=== PATIENT | female | born 1955 | race Caucasian/White ===

== ENCOUNTER 2024-02-07 14:30 | Emergency (ER) | payer OTHER, BC ==
--- OUTSIDE RECORDS SUMMARY | 2024-02-07 14:33 | XMS REPORT | Clinical Summary ---
Author Name Unknown Organization [facility] Address [address] [place] [address] Care Team Providers Care Roughing Mill Operator Name Role Phone Sandor Garcia MD Unavailable [email or web address] Claudia Barnes MD Primary Care Prov ider Shana Terrell MD Unavailable Chris Manuel MD Unavailable [phone] Karley Bach Unavailable Rachael Borjas MD Unavailable Allergies No known active allergies Medications bisoprolol-hyd roCHLOROthiazi de (ZIAC) 2.5 mg-6.25 mg per tablet TAKE 1 TABLET BY MOUTH EVERY DAY 0 09/13/19 19 Active levothyroxine (SYNTHROID, LEVOTHROID) 25 mcg tablet TAKE 1 TABLET BY MOUTH EVERY DAY 0 09/13/19 19 Active omeprazole (PriLOSEC) 20 mg capsule ORAL TAKE 1 CAPSULE BY MOUTH EVERY DAY 0 09/13/19 19 Active ferrous sulfate 325 (65 FE) MG EC tablet Take 65 mg by mouth daily with breakfast. Active folic acid (FOLVITE) 1 mg tablet Take 1 tablet (1 mg) by mouth daily. Active calcium carbonate (CALCIUM 500 ORAL) Take 1 tablet by mouth daily. Active cholecalcifero l, vitamin D3, 10 mcg (400 units) tablet Take 1 tablet (400 Units) by mouth daily. Active bisoprolol (ZEBETA) 5 mg tablet Take 1 tablet (5 mg) by mouth daily. 12/14/19 24 Active letrozole (Femara) 2.5 mg tabletIndicati ons:Cancer of left female breast, not otherwise specified Take 1 tablet (2.5 mg) by mouth daily. 90 tablet 3 04/28/19 23 024 Discontinued zolpidem (Ambien) 5 mg tabletIndicati ons:Infiltrati ng duct carcinoma, NOS of upper-outer quadrant of breast <Female; Left>,Other insomnia Take 1 tablet (5 mg) by mouth nightly as needed for sleep. 30 tablet 05/02/19 24 024 Discontinued(Re order) zolpidem (Ambien) 5 mg tabletIndicati ons:Infiltrati ng duct carcinoma, NOS of upper-outer quadrant of breast <Female; Left>,Other insomnia Take 1 tablet (5 mg) by mouth nightly as needed for sleep. 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 11/30/2018 Cancer Staging:Clinical stage from 12/11/2018:Stage IA(cT1c, cN0, cM0, G1, ER+, ND+, HER2-) - Unsigned Mammography abnormal 11/18/2018 Encounters Date Type Department Care Team Description 01/09/2024 1:40 PM EMBOSSING CALENDER OPERATOR Telemedicine MD [facility] [place] - Breast Medical Oncology [address] [place] [address] Shana Terrell MD Infiltrating duct carcinoma, NOS of upper-outer quadrant of breast <Female; Left>; Renal mass 01/09/2024 Telephone MD [facility] [place] - Medical Oncology [address] [place] [address] [address] [place] [address] Shana Terrell MD 12/25/2023 Orders Only Main Interventional Radiology [facility]5 [facility], 3rd [place] [address] Rody Lujan PA Cancer (Primary Dx) 12/19/2023 8:00 PM CDT Ancillary Procedure Image Library [facility] [place] [address] Claudia Barnes MD Cancer 12/19/2023 11:45 AM CDT Consult MD [facility] [place] - Urology [address] [place] [address] Rachael Borjas MD Infiltrating duct carcinoma, NOS of upper-outer quadrant of breast <Female; Left> 12/19/2023 Orders Only MD [facility] [place] - Urology [address] [place] [address] Monique Gorman PA Infiltrating duct carcinoma, NOS of upper-outer quadrant of breast <Female; Left> (Primary Dx); Renal mass 12/19/2023 Travel 11/28/2023 Orders Only MD [facility] [place] - Medical Oncology [address] [place] [address] Vince Rodriguez APRN Renal mass (Primary Dx); Infiltrating duct carcinoma, NOS of upper-outer quadrant of breast <Female; Left> 11/27/2023 Orders Only MD [facility] Oncology [address] [place] [address] Vince Rodriguez APRN Infiltrating duct carcinoma, NOS of upper-outer quadrant of breast <Female; Left> (Primary Dx) 11/14/2023 11:30 AM CDT Follow-Up MD [facility] Medical Oncology [address] [place] [address] Vince Rodriguez APRN 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 (Primary Dx); Screening for osteoporosis 11/14/2023 Telephone MD [facility] [place] - Medical Oncology [address] [place] [address] [address] [place] [address] Vince Rodriguez APRN 11/14/2023 Travel 11/01/2023 3:20 PM CDT Ancillary Procedure Diagnostic Imaging in [facility] [address] [facility] [place] [address] Michael BERNADETTE Clarke 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; Screening for osteoporosis 11/01/2023 2:15 PM CDT Ancillary Procedure Diagnostic Imaging in [facility] [address] [facility], [address] [place] [address] Michael BERNADETTE Clarke 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; Screening for osteoporosis 11/01/2023 Travel 10/27/2023 Documentation Breast Imaging [address] [facility], 5th [place] [address] Vicente Wang, RT 08/10/2023 12:30 PM CDT Follow-Up MD [facility] [place] - Radiation Oncology [address] [place] [address] Trina Winters MD Kumar, Savita, PA 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 Pt confirmed appt and will complete research surveys in the next few days. ) 07/18/2023 Documentation Radiation Oncology [address] [facility], 1st [place] [address] Iliana, Ritupreet K Research (This note is to document patient was called to remind that her appt in Rad Onc has been scheduled for 08/10/2023. Left message with a call back phone number. Also left message that a research survey will be sent to pt's mychart and email to complete for OPAL study. 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 (Primary Dx) 06/13/2023 Refill MD [facility] [place] - Medical Oncology [address] [facility] [address] [place] [address] Cayetano Shen APRN Cancer of left female breast, not otherwise specified 05/02/2023 1:00 PM EMBOSSING CALENDER OPERATOR Follow-Up MD [facility] [place] - Medical Oncology [address] [facility] [address] [place] [address] Vince Rodriguez APRN Other insomnia (Primary Dx); 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; Other pancytopenia; Cancer of left female breast, not otherwise specified 05/02/2023 Travel after 02/07/2023 Immunizations Name Administration Dates Next Due Pfizer SARS-CoV-2 Vaccination (Purple Cap) 05/31,05/09/2020 Surgical History Surgery Date Site/Laterality Comments COLONOSCOPY 03/06/2014 - 03/05/2015 ROTATOR CUFF REPAIR 02/04/2012 - 03/05/2012 Right US BREAST BIOPSY HISTORY 11/12/2018 L breast TRANSFER OR REARRANGEMENT ADJACENT TISSUE 01/04/2019 - 02/02/2019 L breast MASTECTOMY SEGMENTAL NEEDLE LOCA IOLM SNB 01/04/2019 - 02/02/2019 Left L breast; segmental BREAST BIOPSY 11/04/2018 - 12/03/2018 core with c L breast Medical History Medical History Date Comments Hypertension 2013 Fatty liver 2018 Diverticulitis 2010 Menopause 2005 Anemia 2018 Alcohol abuse Decreased thyroid stimulating hormone level Gastroesophageal reflux disease Hiatal hernia History of radiation therapy 03/2019 hor monal tx of cancer Infiltrating duct carcinoma of breast 11/2018 L breast History of radiation therapy to breast area 2018 Family History Medical History Relation Name Comments Colon cancer Maternal Grandmother Relation Name Status Comments Maternal Grandmother Social History Tobacco Use Types Packs/Day Years Used Date Smoking Tobacco: Never Smokeless Tobacco: Never Alcohol Use Standard Drinks/Week Comments Yes 0 (1 standard drink = 0.6 oz pur e alcohol) 4-5 drinks per day Comments No Sex and Gender Information Value Date Recorded Sex Assigned at Female 11/08/2018 6:13 PM CDT Legal Sex Female 8:15 AM CDT Gender Identity Female 11/08/2018 6:13 PM CDT Sexual Orientation Straight 11/08/2018 6: 13 PM CDT Obstetrics History Para Term AB IAB SAB Ectopic Multiple Livin g Live Births 7 5 5 2 Date Outcome GA Total Labor Labor/2nd/3rd Weight Sex Type Anes PTL Rylee A1 A5 Name Clin Term Term AB AB Term Term Term Comments Menarche age 14 Menopause age 49 Parity age 35 Breast-feeding for 20 months OCP for 3 years HRT for 11 years, currently using Last Filed Vital Signs Vital Sign Reading Time Taken Comments Blood Pressure 136/84 12/19/2023 12:08 PM CDT Pulse 79 12/19/2023 12:08 PM CDT Temperature 36.6 C (97.9 F) 12/19/2023 1 2:08 PM CDT Respiratory Rate 18 12/19/2023 12:0 8 PM CDT Oxygen Saturation - - Inhaled Oxygen Concentration - - Weight 105.6 kg (232 lb 12.9 oz) 2023 12:08 PM CDT Height 171 cm (5' 7.32") 08/10/2023 11: 57 AM CDT Body Mass Index 36.11 08/10/2023 11:57 AM CDT Plan of Treatment Upcoming Encounters Date Type Department Care Team (Late st Contact Info) Description 03/18/2024 12:15 PM EMBOSSING CALENDER OPERATOR Appointment MD [facility] [address] [place], [place] [id number] Claudia Barnes MD [address] [place] [phone] [email or web address] Joselin Amos MD [address] [place] [phone] [email or web address] 03/18/2024 1:30 PM EMBOSSING CALENDER OPERATOR Lab MD [facility] [address] [facility] 2nd [place], [place] [phone] Rody Lujan PA [address] [place] [phone] [email or web address] 03/21/2024 6:15 AM EMBOSSING CALENDER OPERATOR Appointment [facility] Cardiology [address] [facility] Main Bldg, 2nd [place] [address] Rody Lujan PA [address] [place] [address] [email or web address] 03/21/2024 6:45 AM EMBOSSING CALENDER OPERATOR Appointment Main Interventional Radiology [address] [facility] [address] 3rd [place] [address] Monique Gorman PA [address] [place] [address] [email or web address] Joselin Amos MD [address] [place] [phone] [email or web address] 11/01/2024 8:00 AM CDT Ancillary Procedure Diagnostic Imaging in [facility] [address] [place] [address] [address], [address] [place], [place] [id number] Vince Rodriguez APRN [address] [place] [address] [email or web address] 11/12/2024 9:00 AM CDT Follow-Up MD [facility] [place] - Medical Oncology [address] [facility] [address] [place] [address] Vince Rodriguez, BERNADETTE [address] [place] [address] [email or web address] Health Maintenance Due Date Last Done Comments Pneumococcal Vaccine: 65+ Ye ars (2 of 2 - PPSV23 or PCV20) 10/04/2023 10/03/2022 COVID-19 Vaccine ( - 2023- season) 2023, 05/09/2020 Influenza Vaccine (#1) 2023 12/27/2021, 2020 Procedures Procedure Name Priority Date/Time Associated Diagnosis Comments OSI MRI ABDOMEN Routine 11/21/2023 1:08 PM CDT Cancer DEXA BONE MINERAL DENSITY BOTH HIPS AND SPINE Routine 11/01/2023 3:40 PM CDT 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 For comparison only. No MD [facility] originated interpretation requested or available. us Claudia Barnes MD IMG OUTSIDE IMAGE ORDERABLES Final Result * NM DEXA Bone Mineral Density Both Hips and Spine (11/01/2023 3:40 PM CDT) Anatomical Region Laterality Modality Spine Nuclear Medicine 11/01/2023 3:45 PM CDT Impressions 11/01/2023 6:38 PM CDT 1. Normal bone mineral density. 2. Interval significant decreased bone density in the lumbar spine, bilateral hips and the right femoral neck. I personally reviewed these image(s) along with the resident's/fellow's interpretations, certify that if a procedure was performed I was physically present, and agree with the final report. Narrative 11/01/2023 6:38 PM CDT FULL RESULT: Examination: Bone Mineral Density (DXA), 11/01/2023 Clinical History: 67-year-old postmenopausal female with history of breast cancer. Indication: Reassessment of bone mineral density.. Comparison: October 2021. Technique: Bone mineral density was obtained using Hologic dual-energy X-ray absorptiometry. L1 was excluded as prior. Findings: The findings are provided in the below table(s). Bone Density: Region Exam Date BMD T- Z- g/cm2 Score Score AP Spine (L2, L3, L4) 11/01/2023 1.129 0.5 2.4 Femoral Neck (Left) 11/01/2023 0.818 -0.3 1.3 Total Hip (Left) 11/01/2023 0.924 -0.1 1.1 Femoral Neck (Right) 11/01/2023 0.787 -0.6 1.0 Total Hip (Right) 11/01/2023 0.909 -0.3 1.0 For postmenopausal women and men age 50 and over, the World Health Organization criteria for BMD interpretation classify patients as: Normal (T-score at or above -1.0), Osteopenia (T-score between -1.0 and -2.5), or Osteoporosis (T-score at or below -2.5). Previous Exams: Region Exam Age BMD T-score BMD Change vs Date g/cm2 Baseline Previous AP Spine (L2-L4) 11/01/2023 67 1.129 0.5 -9.7%* -7.3%* 10/21/2021 65 1.218 1.3 -2.6%* -2.6%* 02/06/2019 63 1.251 1.6 Total Hip(Left) 11/01/2023 67 0.924 -0.1 -10.7%* -9.9%* 10/21/2021 65 1.026 0.7 -0.9% -0.9% 02/06/2019 63 1.035 0.8 Femoral Neck(Left) 11/01/2023 67 0.818 -0.3 -8.2%* -2.7% 10/21/2021 65 0.841 -0.1 -5.6%* -5.6%* 02/06/2019 63 0.891 0.4 Total Hip(Right) 11/01/2023 67 0.909 -0.3 -10.1%* -7.1%* 10/21/2021 65 0.979 0.3 -3.2% -3.2% 02/06/2019 63 1.011 0.6 Femoral Neck(Right) 11/01/2023 67 0.787 -0.6 -11.4%* -5.8%* 10/21/2021 65 0.835 -0.1 -6.0%* -6.0%* 02/06/2019 63 0.888 0.4 *Denotes significance at 95% confidence level, site specific LSC for AP Spine = 0.029 g/cm2, site specific LSC for Total Hip = 0.033 g/cm2, site specific LSC for Femoral Neck = 0.045 g/cm2, LSC for 1/3 Forearm = 0.023 g/cm2 Procedure Note Carlos Turpin MD - 11/01/2023 FULL RESULT: Examination: Bone Mineral Density (DXA), 11/01/2023 Clinical History: 67-year-old postmenopausal female with history of breastcancer. Indication: Reassessment of bone mineral density.. Comparison: October 2021. Technique: Bone mineral density was obtained using Hologic [id number]-hny absorptiometry. L1 was excluded as prior. Findings: The findings are provided in the below table(s). Bone Density: Region Exam Date BMD T- Z- g/cm2 Score Score AP Spine (L2, L3, L4) 11/01/2023 1.129 0.5 2.4 Femoral Neck (Left) 11/01/2023 0.818 -0.3 1.3 Total Hip (Left) 11/01/2023 0.924 -0.1 1.1 Femoral Neck (Right) 11/01/2023 0.787 -0.6 1.0 Total Hip (Right) 11/01/2023 0.909 -0.3 1.0 For postmenopausal women and men age 50 and over, the World Health Organization criteria for BMD interpretation classify patients as: Normal (T-score at or above -1.0), Osteopenia (T-score between -1.0 and -2.5), or Osteoporosis (T-score at or below -2.5). Previous Exams: Region Exam Age BMD T-score BMD Change vs Date g/cm2 Baseline Previous AP Spine (L2-L4) 11/01/2023 67 1.129 0.5 -9.7%* -7.3%* 10/21/2021 65 1.218 1.3 -2.6%* -2.6%* 02/06/2019 63 1.251 1.6 Total Hip(Left) 11/01/2023 67 0.924 -0.1 -10.7%* -9.9%* 10/21/2021 65 1.026 0.7 -0.9% -0.9% 02/06/2019 63 1.035 0.8 Femoral Neck(Left) 11/01/2023 67 0.818 -0.3 -8.2%* -2.7% 10/21/2021 65 0.841 -0.1 -5.6%* -5.6%* 02/06/2019 63 0.891 0.4 Total Hip(Right) 11/01/2023 67 0.909 -0.3 -10.1%* -7.1%* 10/21/2021 65 0.979 0.3 -3.2% -3.2% 02/06/2019 63 1.011 0.6 Femoral Neck(Right) 11/01/2023 67 0.787 -0.6 -11.4%* -5.8%* 10/21/2021 65 0.835 -0.1 -6.0%* -6.0%* 02/06/2019 63 0.888 0.4 *Denotes significance at 95% confidence level, site specific LSC for APSpine = 0.029 g/cm2, site specific LSC for Total Hip = 0.033 g/cm2, sitespecific LSC for Femoral Neck = 0.045 g/cm2, LSC for 1/3 Forearm = 0.023 g/cm2 IMPRESSION: 1. Normal bone mineral density. 2. Interval significant decreased bone density in the lumbar spine,bilateral hips and the right femoral neck. I personally reviewed these image(s) along with the resident's/fellow'sinterpretations, certify that if a procedure was performed I wasphysically present, and agree with the final report. Vince Rodriguez APRN [facility] DXA ORDERABLES Final Result * Diagnostic Mammogram w Eran - Bilateral (11/01/2023 3:14 PM CDT) Anatomical Region Laterality Modality Breast Bilateral Mammography Impressions 11/01/2023 4:10 PM CDT Bilateral There is no mammographic evidence of malignancy. Overall BI-RAD Category: 2 - Benign Mammogram in 1 Year is recommended. The findings and recommendations were discussed with the patient at time of examination. Narrative 11/01/2023 4:10 PM CDT CLINICAL INDICATION: Patient is a 67 y.o. female and is seen for history of breast cancer. Prior history left breast cancer status post breast conservation therapy. Diagnostic Mammogram w Eran - Bilateral Computer-aided detection was utilized by the radiologist in the interpretation of this examination. Tomosynthesis was performed in CC and MLO projections. COMPARISON: The present examination has been compared to prior imaging studies performed : 11/12/2018 Post Procedure Mammogram Left at [facility] , 10/22/2019 Mammography Digital Diagnostic Bilateral with Eran at [facility] , 10/07/2020 Mammography Digital Diagnostic Bilateral with Eran at [facility] , 10/21/2021 Mammography Digital Diagnostic Bilateral with Eran at [facility] , 11/01/2022 Diagnostic Mammogram w Eran - Bilateral at [facility] FINDINGS: The breasts are heterogeneously dense, which may obscure small masses. Bilateral No dominant mass, architectural distortion, or suspicious calcifications are identified. There are calcifications in a diffuse distribution seen in both breasts. There are stable postoperative changes in the left breast and left axilla. Vince Rodriguez APRN [facility] MAMMOGRAPHY ORDERABLES Final Result after 02/07/2023 Insurance MEDICARE PART A AND B [facility] MEDICARE SUPP-SECONDARY ONLY MEDICARE PART A AND B [facility] MEDICARE SUPP-SECONDARY ONLY Care Teams Roughing Mill Operator Relationship Specialty Start Date End Date Sandor Garcia MD [email or web address] PCP - External Referring Family Practice 10/31/18 Claudia Barnes MD [address] [place] [phone] [email or web address] PCP - General Breast Surgery 10/31/18 Shana Terrell MD [address] [place] [phone] [email or web address] Consulting Physician Breast Medical Oncology 12/11/18 Chris Manuel MD [address] [place] [address] [email or web address] Consulting Physician Plastic and Reconstructive Surgery 12/14/18 Karley Bach [address] [facility] Juan Jose [address] [place] [address] Family Practice 11/14/23 Rachael Borjas MD [address] [place] [phone] [email or web address] Consulting Physician Urology 12/19/23
[2024-02-07] MEDS ORDERED: IBUPROFEN 400 MG TAB ONE (14:40)
--- NOTE | 2024-02-07 15:41 | RAD REPORT ---
Exam:Knee Right 3 View HISTORY: Right knee pain FINDINGS: No fracture or dislocation seen Mild to moderate osteoarthritis medial compartment. Small joint effusion.
--- NOTE | 2024-02-07 15:42 | RAD REPORT ---
Exam:Forearm Right Clinical history: Right forearm pain Findings: No fracture or dislocation seen. Negative ulnar variance
--- NOTE | 2024-02-07 15:44 | RAD REPORT ---
Exam:Foot Right 3 View CLINICAL HISTORY: Right foot pain FINDINGS: Cortical irregularity distal aspect second proximal phalanx probably a mildly displaced fracture. Large calcaneal spur No dislocation
--- NOTE | 2024-02-07 15:59 | ER ---
Nurse's Notes [facility] Name: Mirtha Britton Age: 68 yrs Sex: Female : 1955 Arrival Date: 02/07/2024 Time: 14:30 Bed IW1 Private MD: Diagnosis: Displaced fracture second proximal phananx right foot;Fall (on)(from) sidewalk curb;Contusion of right knee;Pain in right wrist Presentation: 02/06 14:39 Chief complaint: Patient states: she fell Monday night and is complaining of right ap3 foot, right leg and right wrist pain. patient denies hitting her head. Coronavirus screen: At this time, the client does not indicate any symptoms associated with coronavirus-19. Ebola Screen: No symptoms or risks identified at this time. Initial Sepsis Screen: Does the patient meet any 2 criteria? No. Patient's initial sepsis screen is negative. Does the patient have a suspected source of infection? No. Patient's initial sepsis screen is negative. Risk Assessment: Do you want to hurt yourself or someone else? Patient reports no desire to harm self or others. Onset of symptoms was February 05, 2024. 14:39 Method Of Arrival: Ambulatory ap3 14:41 Acuity: ANIA 4 ap3 Triage Assessment: 14:42 General: Appears uncomfortable, Behavior is calm, cooperative, appropriate for age. ap3 Pain: Complains of pain in right foot, right wrist and right leg Pain currently is 7 out of 10 on a pain scale. Neuro: Level of Consciousness is awake, alert, obeys commands, Oriented to person, place, time, situation, Appropriate for age Speech is normal. Cardiovascular: Patient's skin is warm and dry. Respiratory: Airway is patent Respiratory effort is even, unlabored, Respiratory pattern is regular, symmetrical. Musculoskeletal: Reports pain in right foot, right wrist and right leg. 16:05 Injury Description: fall. ap3 Historical: - Allergies: 14:41 No Known Allergies; ap3 - PMHx: 14:41 breast cancer-2019; ap3 - PSHx: 14:41 rotator cuff; ap3 - Immunization history:: Adult Immunizations up to date. - Infectious Disease History:: Denies. - Social history:: Smoking status: unknown. Screenin:43 Abuse screen: Denies threats or abuse. Nutritional screening: No deficits noted. ap3 Tuberculosis screening: No symptoms or risk factors identified. 16:05 [facility] ED Fall Risk Assessment (Adult) History of falling in the last 3 months, ap3 including since admission Yes- single mechanical fall (1 pt) Confusion or Disorientation No (0 pts) Intoxicated or Sedated No (0 pts) Impaired Gait Yes (1 pt) Mobility Assist Device Used No (0 pt) Altered Elimination No (0 pt) Score/Fall Risk Level 0 - 2 = Low Risk Oriented to surroundings, Maintained a safe environment, Educated pt \T\ family on fall prevention, incl call for assistance when getting out of bed, Assessed \T\ reinforced patient's understanding of fall precautions, Hourly rounding (assess needs \T\ fall precautionary measures) done, Used ambulatory aids as needed (educated on \T\ assisted with), Used gait belt as appropriate. Vital Signs: 14:41 BP 146 / 99; Pulse 86; Resp 18; Temp 98.3; Pulse Ox 100% ; Weight 108.86 kg; Height 5 ap3 ft. 8 in. ; Pain 7/10; 14:41 Body Mass Index 36.49 (108.86 kg, 172.72 cm) ap3 14:41 Pain Scale: Adult ap3 ED Course: 14:34 Patient arrived in ED. ra3 14:35 [facility] Valdez F[facility]-C [facility] kb 14:35 Paras Fuchs MD is Attending Physician. kb 14:42 Triage completed. ap3 14:43 Arm band placed on left wrist. ap3 15:24 Knee Right 3 View XRAY In Process Unspecified. EDMS 15:24 Forearm Right XRAY In Process Unspecified. EDMS 15:24 Foot Right 3 View XRAY In Process Unspecified. EDMS 16:05 Patient has correct armband on for positive identification. Provided Education on: ap3 discharge education. 16:05 No provider procedures requiring assistance completed. Patient did not have IV access ap3 during this emergency room visit. Administered Medications: 14:46 Drug: Ibuprofen PO 800 mg PO once Route: PO; ap3 16:04 Follow up: Response: No adverse reaction; Pain is decreased ap3 Medication: 16:05 VIS not applicable for this client. ap3 Outcome: 15:58 Discharge ordered by . kb 16:05 Discharged to home ambulatory, ap3 16:05 Condition: good 16:05 Discharge instructions given to patient, Instructed on discharge instructions, follow up and referral plans. Demonstrated understanding of instructions, follow-up care, 16:06 Patient left the ED. ap3 Signatures: Dispatcher [employer] Paulina Hoffman, Ester Martinez RN RN ap3 Radha Baker ra3
--- NOTE | 2024-02-07 15:59 | EDPHYS ---
Physician Documentation [facility] Name: Mirtha Britton Age: 68 yrs Sex: Female : 1955 Arrival Date: 02/07/2024 Time: 14:30 Bed IW1 Private MD: ED Physician Paras Fuchs HPI: 02/06 16:34 This 68 yrs old Female presents to ER via Ambulatory with complaints of Foot Injury, kb Hand Injury, Knee Injury - Right side. 16:34 Pt is a 68 year old female who presents for pain to right wrist, knee and foot after a kb fall last night. States it was dark outside, she went out to get a case of water from the car and stepped off of the driveway causing her to fall. Denies hitting head or loc. . Historical: - Allergies: 14:41 No Known Allergies; ap3 - PMHx: 14:41 breast cancer-2019; ap3 - PSHx: 14:41 rotator cuff; ap3 - Immunization history:: Adult Immunizations up to date. - Infectious Disease History:: Denies. - Social history:: Smoking status: unknown. ROS: 16:24 Constitutional: As per HPI kb Exam: 16:24 Constitutional: This is a well developed, well nourished patient who is awake, alert, kb and in no acute distress. Head/Face: Normocephalic, atraumatic. ENT: Moist Mucous membranes Cardiovascular: Regular rate Respiratory: Respirations even and unlabored. No increased work of breathing. Talking in full sentences Abdomen/GI: Soft, non-tender. No distention Skin: Warm, dry with normal turgor. Normal color. Neuro: Awake and alert, GCS 15, oriented to person, place, time, and situation. 16:24 Musculoskeletal/extremity: Extremities: grossly normal except: noted in the right knee: contusion, ecchymosis, pain, noted in the right wrist: pain, noted in the right second toe: pain, tenderness, ROM: intact in all extremities, Circulation is intact in all extremities. Sensation intact. Weight bearing: able to fully bear weight, Vital Signs: 14:41 BP 146 / 99; Pulse 86; Resp 18; Temp 98.3; Pulse Ox 100% ; Weight 108.86 kg; Height 5 ap3 ft. 8 in. ; Pain 7/10; 14:41 Body Mass Index 36.49 (108.86 kg, 172.72 cm) ap3 14:41 Pain Scale: Adult ap3 MDM: 14:36 Medical Screening Exam initiated kb 16:33 Differential diagnosis: dislocation, closed fracture, contusion. Data reviewed: vital kb signs, nurses notes. Independent interpretation of the following test(s) in the Emergency Department X-Ray: My interpretation is displaced fracture proximal phalanx second digit right foot. Historians other than the Patient: Spouse/Significant Other: . Counseling: I had a detailed discussion with the patient and/or guardian regarding the historical points, exam findings, and any diagnostic results supporting the discharge/admit diagnosis, radiology results, the need for outpatient follow up, a orthopedic surgeon, to return to the emergency department if symptoms worsen or persist or if there are any questions or concerns that arise at home. 02/06 14:42 Order name: Knee Right 3 View XRAY; Complete Time: 15:51 kb 02/06 14:42 Order name: Forearm Right XRAY; Complete Time: 15:51 kb 02/06 14:42 Order name: Foot Right 3 View XRAY; Complete Time: 15:51 kb 02/06 15:57 Order name: Misc. Order: lula tape; Complete Time: 16:04 kb Administered Medications: 14:46 Drug: Ibuprofen PO 800 mg PO once Route: PO; ap3 16:04 Follow up: Response: No adverse reaction; Pain is decreased ap3 Disposition Summary: 02/07/24 15:58 Discharge Ordered Notes: Location: Home kb Condition: Stable kb Diagnosis - Displaced fracture second proximal phananx right foot kb - Fall (on)(from) sidewalk curb kb - Contusion of right knee kb - Pain in right wrist kb Followup: kb - With: Private Physician - When: 2 - 3 days - Reason: Recheck today's complaints, Continuance of care, Re-evaluation by your physician Followup: kb - With: Emergency Department - When: As needed - Reason: Worsening of condition Discharge Instructions: - Discharge Summary Sheet kb - Toe Fracture, [id number] kb - Contusion, [id number] kb - Wrist Pain, Adult, [id number] kb Forms: - Medication Reconciliation Form kb - Antibiotic Education kb - Prescription Opioid Use kb - Patient Portal Instructions kb - Leadership Thank You Letter kb Signatures: Paulina Marte, HARDWARE TEST ENGINEER-C HARDWARE TEST ENGINEER-Ester Yanes, RN RN ap3
[2024-02-07 21:15] VITALS: BP 146/99; TEMP 98.3; O2SAT 100
== END 2024-02-07 16:06 | disposition home or self-care (01) ==
LOC: ER 14:30
DX: S92.511A Displaced fracture of proximal phalanx of right lesser toe(s), initial encounter for closed fracture (principal); S80.01XA Contusion of right knee, initial encounter; M25.531 Pain in right wrist; W10.1XXA Fall (on)(from) sidewalk curb, initial encounter
CPT/HCPCS: 99283